=== PATIENT | male | born 1980 | race Caucasian/White ===

== ENCOUNTER 2019-07-09 09:20 | Emergency (ER) | payer SELFPAY ==
[~2019-07-09] VITALS: Ht 162.6 cm; Wt 65.8 kg
[2019-07-09 09:26] VITALS: BP 101/59; Ht 162.6 cm; Wt 65.8 kg
== END 2019-07-09 11:08 | disposition home or self-care (01) ==
LOC: ED 09:20
DX: S76.912A Strain of unspecified muscles, fascia and tendons at thigh level, left thigh, initial encounter (principal); I10 Essential (primary) hypertension; X50.1XXA Overexertion from prolonged static or awkward postures, initial encounter; Y93.89 Activity, other specified; Y92.89 Other specified places as the place of occurrence of the external cause; Y99.8 Other external cause status

== ENCOUNTER 2019-07-13 13:01 | Emergency (ER) | payer SELFPAY ==
[~2019-07-13] VITALS: Ht 162.6 cm; Wt 82.6 kg
[2019-07-13 13:06] VITALS: Ht 162.6 cm; Wt 82.6 kg
[2019-07-13 13:49] VITALS: BP 136/94
== END 2019-07-13 13:49 | disposition home or self-care (01) ==
LOC: ED 13:01
DX: R10.9 Unspecified abdominal pain (principal); I10 Essential (primary) hypertension; Z13.9 Encounter for screening, unspecified